=== PATIENT | female | born 1970 | race Caucasian/White ===

== ENCOUNTER → 2017-01-04 | Day surgery (SDC) | payer OTHER ==
[~2017-01-04] MED LIST: ACETAMINOPHEN 1000 MG/100 ML VIAL IV ONE; BUPIVACAINE/EPINEPHRINE 0.25% PF 10 ML VIAL ONE; LACTATED RINGER'S 1000 ML INJ 1,000 ML ONE; MIDAZOLAM HCL 2 MG/2 ML VIAL ONE; ONDANSETRON HCL 4 MG/2 ML VIAL IV PUSH ONE; PROPOFOL 200 MG/20 ML AMP IV ONE; oxyCODONE/ACETAMINOPHEN 5 MG/325 MG TAB ONE
--- NOTE | 2017-01-04 14:33 | TN ---
cc: AD COX MD DATE OF SURGERY: 01/04/2017 PREOPERATIVE DIAGNOSIS Soft tissue mass, right upper back. POSTOPERATIVE DIAGNOSIS Some tissue mass, right upper back, consistent with lipoma. PROCEDURE Excision of soft tissue mass upper back, 15 x 8 cm, consistent with lipoma. SURGEON Ad Cox [employer] Vaibhav, MS III SPECIMEN 15 x 8 cm lipoma from upper back. ESTIMATED BLOOD LOSS 5 cc. ANESTHESIA General via LMA. COMPLICATIONS No complications apparent. PROCEDURE IN DETAIL The patient was taken to the operating room and placed in the supine position. General anesthesia via LMA was induced. She was then turned to the left lateral position with the right side up using the davis bag. An axillary roll was placed. The upper back was prepped and draped in usual sterile fashion. A surgical timeout was performed to verify correct patient, procedure and site. Local anesthetic was injected in the skin and subcutaneous tissue overlying a large upper back soft tissue mass. A transverse incision was made and dissected through the subcutaneous tissue using electrocautery. A large soft tissue mass which appeared to be a lipoma was encountered. This was carefully removed using electrocautery, freeing on all sides from surrounding adventitial and fibrous tissue. It was attached to underlying muscle, possibly originating from underneath the muscle. The entire lipoma did seem to be removed. It was about 15 x 8 cm and pretty well-circumscribed. Hemostasis was achieved. The incision was closed with a deep layer of interrupted 3-0 Vicryl suture incorporating the underlying fat of the wall of the back. The subcuticular layer was closed with running 4-0 Monocryl and Mastisol and Steri-Strips were applied. The patient tolerated the procedure well and was extubated and taken to PACU in stable condition. Ad Cox MD JPHoney/CHELLY /2:20 PM /2:29 PM
== END | disposition home or self-care (01) ==
LOC: ESDC 11:53
PROVIDERS: ATTEND Surgery
DX: D17.1 Benign lipomatous neoplasm of skin and subcutaneous tissue of trunk (principal)
CPT/HCPCS: 00300; 21931; 88305; J0131; J2250; J2405; J3010; J7120; 88304